=== PATIENT | female | born 1995 | race Caucasian/White ===

== ENCOUNTER 2018-10-11 20:40 | Inpatient (IN) | payer BC, OTHER ==
[~2018-10-11] VITALS: Ht 152.4 cm; Wt 55.3 kg
[2018-10-11 21:01] VITALS: BP 112/54
[2018-10-11] MEDS ORDERED: SYEDA 28 TABLE1 EACH PO (21:10)
[2018-10-11] MEDS ORDERED: VALACYCLOVIR500 MG PO (21:10)
[2018-10-11] MEDS ORDERED: DIFLUCAN150 MG PO (21:12)
[2018-10-11 21:38] LABS: URINE CLARITY CLEAR; URINE COLOR YELLOW
[2018-10-11 21:39] LABS: URINE BILIRUBIN NEGATIVE (Negative); URINE BLOOD 1+ (Negative); URINE GLUCOSE-RANDOM* NEGATIVE (Negative); URINE KETONES NEGATIVE (Negative); URINE LEUKOCYTES-REFLEX 1+ (Negative); URINE NITRITE-REFLEX POSITIVE (Negative); URINE PROTEIN (DIPSTICK) NEGATIVE (Negative); URINE SPECIFIC GRAVITY 1.015 (1.005-1.035); URINE UROBILINOGEN 0.2 E.U./dl (0.2-1.0)
[2018-10-11 21:49] LABS: BACTERIA-REFLEX >30 Many /HPF (None Seen); CASTS None Seen /LPF (None Seen); CRYSTALS None Seen /LPF (None Seen); SQUAMOUS 0-3 Few /LPF (0-3); URINE RBC 0-2 Rare /HPF (0-2)
[2018-10-11 21:54] LABS: ABSOLUTE NEUTROPHILS 4.7 thou/uL (1.4-8.2); BASOPHILS 0.5 % (0.0-2.0); EOSINOPHILS 0.9 % (0.0-3.0); HEMATOCRIT 37.6 % (37.0-47.0); HEMOGLOBIN 13.4 gm/dL (12.0-15.0); LYMPHOCYTES 17.6 % (24.0-44.0); MCH 30.7 pg (26.0-34.0); MCHC 35.6 g/dL (28.0-37.0); MCV 86.2 fL (80.0-100.0); MONOCYTES 7.3 % (1.0-8.0); PLATELET COUNT 243 thou/uL (150-400); POLYS 73.7 % (36.0-66.0); RBC 4.36 mil/uL (4.20-5.00); WBC 6.3 thou/uL (4.0-11.0)
[2018-10-11 22:00] LABS: CALCIUM 8.9 mg/dL (8.5-10.1); CREATININE 0.8 mg/dL (0.6-1.0)
[2018-10-11 22:06] LABS: ALBUMIN 3.3 g/dL (3.4-5.0); TOTAL BILIRUBIN 0.4 mg/dL (<0.1-1.0); TOTAL PROTEIN 8.8 g/dL (6.4-8.2)
[2018-10-12] VITALS: BP 107/65
[2018-10-12 00:27] VITALS: BP 106/64
[2018-10-12 00:29] VITALS: BP 106/57
[2018-10-12 03:31] VITALS: BP 106/57
[2018-10-12 07:45] VITALS: BP 106/63
[2018-10-12 19:23] VITALS: BP 108/66
[2018-10-12 19:26] LABS: ABSOLUTE NEUTROPHILS 2.7 thou/uL (1.4-8.2); BASOPHILS 0.6 % (0.0-2.0); EOSINOPHILS 1.2 % (0.0-3.0); HEMATOCRIT 32.2 % (37.0-47.0); LYMPHOCYTES 24.4 % (24.0-44.0); MCH 30.1 pg (26.0-34.0); MCHC 34.5 g/dL (28.0-37.0); MCV 87.3 fL (80.0-100.0); MONOCYTES 10.2 % (1.0-8.0); PLATELET COUNT 213 thou/uL (150-400); POLYS 63.6 % (36.0-66.0); RBC 3.69 mil/uL (4.20-5.00); RDW 11.9 % (10.5-14.5); WBC 4.3 thou/uL (4.0-11.0)
[2018-10-12 19:28] LABS: HEMOGLOBIN 11.1 gm/dL (12.0-15.0)
[2018-10-12 19:33] LABS: CALCIUM 7.9 mg/dL (8.5-10.1); CREATININE 0.9 mg/dL (0.6-1.0); MAGNESIUM 1.9 mg/dL (1.8-2.4)
[2018-10-13 05:35] VITALS: BP 100/53
[2018-10-13 07:28] VITALS: BP 98/50
[2018-10-13 13:31] LABS: ABSOLUTE NEUTROPHILS 3.2 thou/uL (1.4-8.2); BASOPHILS 0.8 % (0.0-2.0); EOSINOPHILS 0.9 % (0.0-3.0); HEMATOCRIT 34.7 % (37.0-47.0); LYMPHOCYTES 19.1 % (24.0-44.0); MCHC 34.7 g/dL (28.0-37.0); MCV 86.6 fL (80.0-100.0); MONOCYTES 7.6 % (1.0-8.0); PLATELET COUNT 213 thou/uL (150-400); POLYS 71.6 % (36.0-66.0); RBC 4.01 mil/uL (4.20-5.00); WBC 4.5 thou/uL (4.0-11.0)
[2018-10-13 16:17] VITALS: BP 106/60
[2018-10-13 19:24] VITALS: BP 107/58
--- NOTE | 2018-10-14 05:07 | HC ---
[facility] [place] [address] CONSULTATION Name: JAC STAHL Room #: 460-P ADM IN M.R.#: [id number] Admission: 10/11/18 Attend Phys: Bud Song MD Discharge: Date of : 95 Report #: [id number] THIS REPORT FOR: //name// CC: [facility] physician/PCP Geronimo Dumont DATE OF SERVICE: 10/13/2018 INFECTIOUS DISEASE CONSULTATION ATTENDING PHYSICIAN: Bud Song MD. REASON FOR EVALUATION: Pelvic abscess in the setting of pelvic inflammatory disease. HISTORY OF PRESENT ILLNESS: Chart reviewed, patient examined. This is a 23-year-old female who was admitted through the Emergency Room with complaints of vaginal rectal discomfort, abdominal pain, noted some degree of discomfort for the last several weeks, had been evaluated, empirically treated without benefit. Over the course of the last 24-48 hours prior to admission, she developed some intractable nausea with emesis, could not keep any food down. It is unclear if she had any fevers or any significant pulmonary-related complaints. Evaluation was undertaken. test was negative. Urinalysis did show 16-25 white cells, greater than 30 bacteria. CBC was otherwise unrevealing. CT of the pelvis, however, showed findings consistent with pelvic inflammatory disease, multiple presumed abscesses in the cul-de-sac. Did have a positive chlamydia PCR. She was empirically treated with gentamicin, clindamycin, dosed with doxycycline. At this point, she is not overtly toxic. She is still unable to keep food down. She is not encephalopathic. ALLERGIES: LISTED TO PENICILLINS, SULFA. MEDICATIONS: Include gentamicin, famotidine, clindamycin, acetaminophen, ondansetron. PAST MEDICAL HISTORY: History of depression, anxiety, headaches, previous tonsillectomy, adenoidectomy. SOCIAL HISTORY: Former smoker, currently uses marijuana. Occasional ethanol. FAMILY HISTORY: Noncontributory. REVIEW OF SYSTEMS: Ten point review of systems otherwise unremarkable with [address] [address] CONSULTATION Name: [facility] Room #: [address] [place] [address] [place] ..#: [id number] Admission: 10/11/18 Attend Phys: Bud Song MD Discharge: Date of : 95 Report #: [id number] exception noted in the history of present illness. PHYSICAL EXAMINATION: GENERAL: Pleasant, alert, cooperative. She is in mild distress at this point, appears to be reasonably well nourished. VITAL SIGNS: Temperature 98, pulse 82, respirations 20, blood pressure 100/53. SKIN: Warm, dry, no rashes. HEENT: Otherwise, unremarkable. Extraocular muscles intact. NECK: Supple. LUNGS: Clear to auscultation. HEART: Regular. I do not appreciate any murmur. ABDOMEN: Soft, nontender. There are no peritoneal signs. EXTREMITIES: Distal lower extremities are otherwise unremarkable. No edema. SKIN: No rashes. LABORATORY DATA: Electrolytes: Sodium 138, potassium 4, chloride 104, bicarbonate is 26, BUN and creatinine 6 and 0.9, anion gap of 8, glucose of 89. CBC: White count of 4.3, H and H 11.1 and 32.2, platelets of 213. Chlamydia PCR was positive. Gonorrhea PCR was negative. CT as described above. Liver function was unremarkable. Albumin of 3.3. Total protein of 5.5. Estimated GFR of 89. Urinalysis: 16-25 white cells, greater than 30 bacteria. ASSESSMENT: Pelvic inflammatory disease, complicated by pelvic abscesses. She had multiple noted initiation of empiric therapy to see how she does clinically. At some point, we will need to repeat the imaging following her response to treatment. Secondly has issue with nausea, presume it is multifactorial. I cannot exclude a component of adverse drug effect. We will have to see how she does clinically. We will await culture results including the urine and blood. <ELECTRONICALLY SIGNED> By: Jalen Jack MD 10/14/18 [id number] Jalen Jack MD /nt
[2018-10-14 05:08] VITALS: BP 97/48
[2018-10-14 05:49] LABS: ABSOLUTE NEUTROPHILS 3.4 thou/uL (1.4-8.2); BASOPHILS 1.3 % (0.0-2.0); EOSINOPHILS 1.1 % (0.0-3.0); HEMATOCRIT 33.3 % (37.0-47.0); HEMOGLOBIN 11.6 gm/dL (12.0-15.0); LYMPHOCYTES 22.3 % (24.0-44.0); MCH 30.1 pg (26.0-34.0); MCHC 34.8 g/dL (28.0-37.0); MCV 86.4 fL (80.0-100.0); MONOCYTES 10.4 % (1.0-8.0); PLATELET COUNT 223 thou/uL (150-400); POLYS 64.9 % (36.0-66.0); RBC 3.85 mil/uL (4.20-5.00); RDW 12.2 % (10.5-14.5); WBC 5.2 thou/uL (4.0-11.0)
[2018-10-14 08:24] VITALS: BP 100/47
[2018-10-14 16:03] VITALS: BP 102/55
[2018-10-14 19:24] VITALS: BP 102/60
[2018-10-15 03:55] VITALS: BP 102/60
[2018-10-15 06:11] LABS: ABSOLUTE NEUTROPHILS 2.5 thou/uL (1.4-8.2); BASOPHILS 1.2 % (0.0-2.0); EOSINOPHILS 1.4 % (0.0-3.0); HEMATOCRIT 34.1 % (37.0-47.0); HEMOGLOBIN 11.9 gm/dL (12.0-15.0); MCHC 34.8 g/dL (28.0-37.0); MCV 86.2 fL (80.0-100.0); MONOCYTES 9.7 % (1.0-8.0); PLATELET COUNT 237 thou/uL (150-400); POLYS 54.7 % (36.0-66.0); RBC 3.95 mil/uL (4.20-5.00); RDW 12.1 % (10.5-14.5); WBC 4.6 thou/uL (4.0-11.0)
[2018-10-15 06:37] LABS: CALCIUM 8.6 mg/dL (8.5-10.1); CREATININE 0.9 mg/dL (0.6-1.0); POTASSIUM 3.6 mmol/L (3.5-5.1); TOTAL BILIRUBIN 0.4 mg/dL (<0.1-1.0); TOTAL PROTEIN 8.7 g/dL (6.4-8.2)
[2018-10-15 08:21] VITALS: BP 102/60
[2018-10-15 13:10] LABS: HIV ANTIBODY Non Reactive (Non Reactive)
[2018-10-15] MEDS ORDERED: ACETAMINOPHEN325 M1 PO (13:52)
[2018-10-15] MEDS ORDERED: DOXYCYCLINE HYC50 MG PO (13:52)
[2018-10-15] MEDS ORDERED: CEFDINIR300 MG PO (13:52)
[2018-10-15] MEDS ORDERED: METRONIDAZOLE500 M4 PO (13:52)
[2018-10-15] MEDS ORDERED: HYDROCODON-ACE1 EAC7 PO (13:52)
[2018-10-15 14:25] VITALS: BP 102/60
== END 2018-10-15 15:00 | disposition home or self-care (01) | DRG 872 ==
LOC: ER 20:40 → EROBS 23:55 → 4W 23:55 → ENTRNSPT 10-15 14:42 → 4W 10-15 15:00
PROVIDERS: Emergency Medicine; Obstetrics & Gynecology; Specialist; ADMIT Internal Medicine
DX: A41.9 Sepsis, unspecified organism (principal); K52.1 Toxic gastroenteritis and colitis; F41.9 Anxiety disorder, unspecified; F32.9 Major depressive disorder, single episode, unspecified; B96.20 Unspecified Escherichia coli [E. coli] as the cause of diseases classified elsewhere; F12.90 Cannabis use, unspecified, uncomplicated; N30.90 Cystitis, unspecified without hematuria; A56.11 Chlamydial female pelvic inflammatory disease; T36.95XA Adverse effect of unspecified systemic antibiotic, initial encounter; F17.210 Nicotine dependence, cigarettes, uncomplicated; Z72.89 Other problems related to lifestyle; Y92.89 Other specified places as the place of occurrence of the external cause; Z79.899 Other long term (current) drug therapy; Z88.0 Allergy status to penicillin; Z88.2 Allergy status to sulfonamides; Z80.8 Family history of malignant neoplasm of other organs or systems; Z82.5 Family history of asthma and other chronic lower respiratory diseases; Z83.79 Family history of other diseases of the digestive system; Z82.69 Family history of other diseases of the musculoskeletal system and connective tissue
CPT/HCPCS: 10040

== ENCOUNTER → 2018-10-19 | Outpatient (CLI) | payer BC, OTHER ==
[~2018-10-19] MED LIST: ACETAMINOPHEN325 M1 PO; CEFDINIR300 MG PO; DIFLUCAN150 MG PO; DOXYCYCLINE HYC50 MG PO; HYDROCODON-ACE1 EAC7 PO; METRONIDAZOLE500 M4 PO; SYEDA 28 TABLE1 EACH PO; VALACYCLOVIR500 MG PO
[2018-10-19 14:13] LABS: ABSOLUTE NEUTROPHILS 3.8 thou/uL (1.4-8.2); BASOPHILS 0.8 % (0.0-2.0); EOSINOPHILS 1.2 % (0.0-3.0); HEMOGLOBIN 13.3 gm/dL (12.0-15.0); LYMPHOCYTES 27.4 % (24.0-44.0); MCH 30.5 pg (26.0-34.0); MCHC 34.9 g/dL (28.0-37.0); MCV 87.4 fL (80.0-100.0); MONOCYTES 7.3 % (1.0-8.0); PLATELET COUNT 269 thou/uL (150-400); POLYS 63.3 % (36.0-66.0); RBC 4.35 mil/uL (4.20-5.00); RDW 12.1 % (10.5-14.5)
== END ==
LOC: CAT 13:06
PROVIDERS: Obstetrics & Gynecology
DX: K80.20 Calculus of gallbladder without cholecystitis without obstruction (principal); N20.0 Calculus of kidney; N73.0 Acute parametritis and pelvic cellulitis; L65.9 Nonscarring hair loss, unspecified; R53.83 Other fatigue

== ENCOUNTER → 2018-10-24 | Outpatient (CLI) | payer BC, OTHER | LOC: ULTRA 15:44 | DX: N83.02 Follicular cyst of left ovary (principal); N83.01 Follicular cyst of right ovary ==

== ENCOUNTER → 2018-11-13 | Outpatient (CLI) | payer BC, OTHER | LOC: CAT 14:24 | DX: N83.8 Other noninflammatory disorders of ovary, fallopian tube and broad ligament (principal); N73.9 Female pelvic inflammatory disease, unspecified ==

== ENCOUNTER 2018-12-19 12:25 | Inpatient (IN) | payer BC, OTHER ==
[~2018-12-19] VITALS: Ht 165.1 cm; Wt 51.0 kg
[2018-12-19] MEDS ORDERED: NITROFURANTOIN100 MG PO (17:46)
[2018-12-19] MEDS ORDERED: ACCUNEB SO1.25 MG/1 INH (17:48)
--- NOTE | 2018-12-19 17:55 | NUR ---
PATIENT ARRIVED TO ROOM AT APPROX 17:20 IN STABLE CONDITION. MOTHER AT BEDSIDE. ADMISSION ASSESSMENT AND HISTORY COMPLETED. A&O,X4. DENIES RLQ PAIN AT THIS TIME, BUT C/O PAIN RELATED TO PID THE PAST THREE DAYS. DENIES N/V/D. ROOM AIR, NO SOA. REGULAR HEART SOUNDS, NO CHEST PAIN. ACTIVE BOWEL SOUNDS, LBM YESTERDAY. SKIN INTACT. TATTOOS NOTED. BELONINGS INCLUDE CLOTHES, CELL PHONE, LAPTOPS X2 - PT REFUSED TO HAVE VALUABLES SENT HOME OR TO SECURITY. HOME MEDS ARE GIVEN TO MOM TO BE SENT HOME. DR. VIVAR NOTIFIED OF DIRECT ADMIT. PT UP AD JOSE. WILL CONTINUE TO MONITOR.
[2018-12-19 18:20] VITALS: BP 107/57
[2018-12-19 20:06] LABS: ABSOLUTE NEUTROPHILS 2.3 thou/uL (1.4-8.2); BASOPHILS 1.1 % (0.0-2.0); EOSINOPHILS 2.3 % (0.0-3.0); HEMATOCRIT 35.9 % (37.0-47.0); HEMOGLOBIN 12.5 gm/dL (12.0-15.0); LYMPHOCYTES 37.5 % (24.0-44.0); MCH 30.5 pg (26.0-34.0); MCHC 34.9 g/dL (28.0-37.0); MCV 87.4 fL (80.0-100.0); MONOCYTES 9.9 % (1.0-8.0); PLATELET COUNT 184 thou/uL (150-400); POLYS 49.2 % (36.0-66.0); RBC 4.11 mil/uL (4.20-5.00); RDW 13.1 % (10.5-14.5); WBC 4.7 thou/uL (4.0-11.0)
[2018-12-19 20:08] LABS: URINE BILIRUBIN NEGATIVE (Negative); URINE BLOOD NEGATIVE (Negative); URINE CLARITY CLEAR; URINE COLOR YELLOW; URINE GLUCOSE-RANDOM* NEGATIVE (Negative); URINE KETONES NEGATIVE (Negative); URINE LEUKOCYTES-REFLEX TRACE (Negative); URINE NITRITE-REFLEX NEGATIVE (Negative); URINE PROTEIN (DIPSTICK) NEGATIVE (Negative); URINE UROBILINOGEN 0.2 E.U./dl (0.2-1.0)
[2018-12-19 20:18] VITALS: BP 93/49
[2018-12-19 20:24] LABS: ALBUMIN 3.6 g/dL (3.4-5.0); CALCIUM 8.8 mg/dL (8.5-10.1); CREATININE 0.7 mg/dL (0.6-1.0); MAGNESIUM 1.9 mg/dL (1.8-2.4); PHOSPHORUS 3.6 mg/dL (2.5-4.9); POTASSIUM 3.6 mmol/L (3.5-5.1); TOTAL BILIRUBIN 0.3 mg/dL (<0.1-1.0); TOTAL PROTEIN 7.4 g/dL (6.4-8.2)
[2018-12-19 20:38] LABS: APTT 34.4 Seconds (24.5-32.8); INR 1.1
[2018-12-20 04:55] VITALS: BP 101/42
--- NOTE | 2018-12-20 06:07 | NUR ---
DENIED NEED FOR PAIN MEDICATION. GIVEN ZOFRAN BEFORE IV/PO ANTIBIOTICS AT HS, HISTORY OF N/V WITH ANTIBIOTICS. UP AD JOSE. STEADY GAIT. CT ABD,PELVIS DONE. DR DAVIES AWARE OF RESULTS, PLAN IS TO DC PATIENT HOME WITH PICC LINE FOR IV ANTIBIOTIC INFUSION BID. HE WILL SEE HER MONDAY MORNING. I NOTIFIED PATIENT, FAMILY OF ABOVE.
[2018-12-20 07:50] VITALS: BP 100/54
--- NOTE | 2018-12-20 09:45 | NUR ---
ASSUMED CARE OF PT AT 0700. ASSESSMENT COMPLETED. A&O,X4. DENIES PAIN, N/V/D. AM MEDS GIVEN ORDERED. PT IN STABLE CONDITION. VSS. WILL CONTINUE TO MONITOR.
--- NOTE | 2018-12-20 11:30 | NUR ---
NEW PICC LINE ORDERS FOR HOME HEALTH IV ABX. IV TEAM NOTIFIED. PICC SUCCESSFULLY PLACED BRENT. XRAY CONFIRMED. PT TOLERATED PROCEDURE WELL.
[2018-12-20] MEDS ORDERED: DOXYCYCLINE HYC50 MG PO (12:22)
--- NOTE | 2018-12-20 12:38 | NUR ---
ASSESSMENT-PT LIVES IN A [place] WITH HER BOYFRIEND. PT'S MOM IS AT THE BEDSIDE. PT IS INDEPENDENT OF ADLS AND AMBULATION AND DRIVES. DISCUSSED IV ABX PROCESS AND OFFERED OPTIONS TO HER. SHE CHOSE [facility] AND [facility]. WILL ASK DC RUBBER CURER TO FAX REFERRAL TO BOTH TO CHECK BENEFITS AND SEE IF THEY CAN ACCEPT PT FOR DC LATER TODAY. FOLLOWING TO ASSIST WITH DC PLANNING.
--- NOTE | 2018-12-20 13:18 | NUR ---
CONSULTED TO PLACE A PICC FOR A PATIENT NEEDING HOME IV ANTIBIOTICS. ORDER AND CONSENT NOTED. THE PROCEDURE WELL BENIFITS AND RISKS WERE DISCUSSED WITH THE PATIENT AND MOTHER. THE RIGHT UPPER ARM WAS WIDLEY PATENT. A #4F SINGLE LUMEN POWER PICC WAS PLACED PER HOSPITAL POLICY AFTER A BEDSIDE TIMEOUT WAS COMPLETE. LINE WAS TRIMMED TO 39CM AND ADVANCED WITHOUT DIFFICULTY. A STAT CHEST XRAY WAS ORDERED FOR CONFIRMATION
--- NOTE | 2018-12-20 13:53 | NUR ---
FAXED REFERRAL TO [facility] TO CHECK BENEFITS FOR HOME IV ABX PT. HAS MET 90% OR DEDUCTABLE SHE IS $395.03 AWAY FROM MEETING DEDUCTABLE (DEDUCTABLE IS 1,500.03) AFTER DEDUCTABLE MET INS. WILL PAY 100%. COST OF MEDICATION IS $17.20/DAY. DCP NOTIFIED SW OF BENEFITS. [facility] WILL NOT BE ABLE TO SUPPLY PT. WITH MED. TIL TOMORROW. DCP TO FOLLOW.
[2018-12-20 15:51] VITALS: BP 100/54
[2018-12-20 16:57] VITALS: BP 100/54
--- NOTE | 2018-12-20 18:49 | NUR ---
DISCHARGE ORDERS. HOME HEALTH AND IV ABX SET UP. PT TO RECEIVE LAST DOSE AT 19:30 AND DISCHARGE HOME AFTER. DISCHARGE INFORMATION DISCUSSED WITH PT AND MOTHER AT BEDSIDE. NEW SCRIPTS AND CARENOTES GIVEN. PT GIVEN KNOWLEDGE ABOUT PICC LINE AND INFUSION THERAPY. BRENT PICC LINE IN PLACE FOR HOME IV ABX USE. PT IN STABLE CONDITION.
[2018-12-20 19:09] VITALS: BP 119/61
--- NOTE | 2018-12-20 20:38 | NUR ---
ASSUMED CARE AT 1900, PT DENIES COMPLAINTS. DAY NURSE STARTED LAST IV ABX INFUSION, DOSE FINISHED AROUND 2029. PT CLEARED FOR D/C, INSTRUCTIONS AND PAPERS GIVEN BY DAY RN. PT DISCHARGED IN STABLE CONDITION AT 2039.
== END 2018-12-20 20:41 | disposition home health service (06) | DRG 690 ==
LOC: 4E 12:25
PROVIDERS: ADMIT Internal Medicine
PROC: 02H633Z Insertion of Infusion Device into Right Atrium, Percutaneous Approach (ICD-10-PCS; principal; 2018-12-20)
DX: A56.11 Chlamydial female pelvic inflammatory disease (principal); F12.90 Cannabis use, unspecified, uncomplicated; Z60.2 Problems related to living alone; Z91.19 Patient's noncompliance with other medical treatment and regimen; Z71.6 Tobacco abuse counseling; Z87.891 Personal history of nicotine dependence; Z83.6 Family history of other diseases of the respiratory system; Z80.41 Family history of malignant neoplasm of ovary; Z88.0 Allergy status to penicillin; Z83.49 Family history of other endocrine, nutritional and metabolic diseases; Z79.899 Other long term (current) drug therapy
CPT/HCPCS: 10783; 27000

== ENCOUNTER → 2019-02-22 | Outpatient (CLI) | payer BC, OTHER ==
[~2019-02-22] MED LIST changes: +ACCUNEB SO1.25 MG/1 INH; +NITROFURANTOIN100 MG PO
== END ==
LOC: ULTRA 13:20
DX: T83.9XXA Unspecified complication of genitourinary prosthetic device, implant and graft, initial encounter (principal); N83.8 Other noninflammatory disorders of ovary, fallopian tube and broad ligament; Z88.2 Allergy status to sulfonamides; Z88.0 Allergy status to penicillin; Y65.8 Other specified misadventures during surgical and medical care; Y92.89 Other specified places as the place of occurrence of the external cause